=== PATIENT | female | born 2000 | race Caucasian/White ===

== ENCOUNTER 2021-09-27 10:50 | Emergency (ER) | payer SELFPAY ==
[2021-09-27] MEDS ORDERED: Sodium Chloride 0.9% 1,000 ML IV ONE (11:09)
[2021-09-27] MEDS ORDERED: Ondansetron 4 MG/2 ML SDV IVPUSH ONE (11:09)
[2021-09-27 11:44] LABS: ANION GAP 16.3 mmol/L (5-15); CHLORIDE,CL 105 mmol/L (98-107); SODIUM,NA 141 mmol/L (136-145)
[2021-09-27 11:51] LABS: ESTIMATED GFR 131 mL/min (>=60)
[2021-09-27] MEDS ORDERED: Ketorolac 30 MG/ML SDV IVPUSH ONE (11:59)
== END 2021-09-27 12:26 | disposition home or self-care (01) ==
LOC: KA.ED 10:50
DX: N92.0 Excessive and frequent menstruation with regular cycle (principal); Z28.310 Unvaccinated for COVID-19; Z87.42 Personal history of other diseases of the female genital tract
CPT/HCPCS: 36415; 80053; 84702; 84703; 85025; 96361; 96374; 96375; 99283; 99284-25; J1885; J2405; J7030